=== PATIENT | male | born 1980 | race Caucasian/White ===

== ENCOUNTER → 2020-05-29 15:00 | Outpatient (CLI) | payer OTHER, SELFPAY ==
--- NOTE | ~2020-05-29 | XR_ITS ---
EXAMINATION: XR lumbar spine 2-3V DATE: 05/29/2020 16:02 INDICATION: Back pain TECHNIQUE: Anteroposterior and lateral views of the lumbar spine, and cone-down lateral view of the l umbosacral junction were obtained. COMPARISON: CT, 08/30/2018 FINDINGS: There are 3 mm of stable retrolisthesis of L4 on L5 and L5 on S1. The vertebral body height s are maintained. The intervertebral disc spaces are normal. There is no fracture. A large volume of colonic stool is present. IMPRESSION: 1. Mild lumbar spondylosis without acute findings or significant interval change. Reviewed, dictated and finalized at location A. [employer] ASSISTANT IMPRESSION: 1. Mild lumbar spondylosis without acute findings or significant interval contre[place] keya
--- NOTE | ~2020-05-29 | XR_ITS ---
EXAMINATION: XR thoracic spine 3V DATE: 05/29/2020 16:02 INDICATION: Back pain TECHNIQUE: AP, lateral and lateral swimmer's views of the thoracic spine were obtained. COMPARISON: None. FINDINGS: Bone alignment is normal. There is no fracture. Small degenerative osteophytes project from the anterior endplates of multiple vertebral bodies. The vertebral body heights and intervertebral d isc spaces are maintained. IMPRESSION: 1. Mild thoracic spondylosis without acute findings. Reviewed, dictated and finalized at location A. OF TRAINING AND DEVELOPMENT
== END ==
PROVIDERS: PCP Family Medicine; Visit Provider Family Medicine
DX: M47.894 Other spondylosis, thoracic region (principal); M47.896 Other spondylosis, lumbar region
CPT/HCPCS: 72072; 72100